=== PATIENT | male | born 1960 | race Caucasian/White ===

== ENCOUNTER 2024-10-02 13:47 | Emergency (ER) | payer OTHER, SELFPAY ==
[2024-10-02 13:48] VITALS: BP 143/97; PULSE 93; RESP 16; TEMP 36.7; O2SAT 92; BMI 26.3
--- NOTE | 2024-10-02 14:16 | EDS_ITS ---
HPI HPI - Fall History of Present Illness Chief Complaint: [facility] Medical History (Updated 10/02/24 @ 13:53 by Joan Vo) Kidney stones Allergy/AdvReac Type Severity Reaction Status Date / Time No Known Allergies Allergy Verified 10/02/24 13:52 Social History Smoking Status: Never smoker EXAM Physical Exam Const Vital Signs: 10/02/24 13:48 10/02/24 13:52 10/02/24 15:47 Temperature 98.1 F Temperature Source Oral Pulse Rate 93 72 Respiratory Rate 16 16 Respiratory Effort Normal Respiratory Depth Normal Respiratory Pattern Normal Blood Pressure 143/97 H 164/90 H Blood Pressure Mean 112 114 Pulse Ox 92 95 Oxygen Delivery Method Room Air Room Air Room Air Oxygen Flow Rate (L/min) 92 10/02/24 16:13 10/02/24 16:15 10/02/24 16:30 Temperature Temperature Source Pulse Rate 67 Respiratory Rate 12 Respiratory Effort Respiratory Depth Respiratory Pattern Blood Pressure 163/90 H Blood Pressure Mean 118 Pulse Ox 95 98 97 Oxygen Delivery Method Room Air Oxygen Flow Rate (L/min) 10/02/24 17:24 Temperature 98 F Temperature Source Pulse Rate 78 Respiratory Rate 14 Respiratory Effort Respiratory Depth Respiratory Pattern Blood Pressure 160/91 H Blood Pressure Mean 114 Pulse Ox 95 Oxygen Delivery Method Oxygen Flow Rate (L/min) MDM MDM MDM Narrative Medical decision making narrative: HISTORY OF PRESENT ILLNESS: Chief complaint: Fall 64-year-old male presents after fall. States he works at [employer] and fell down an elevator shaft. States this Is a 12 and 15 feet deep. Notes he landed on his feet. Denies hitting his head or losing consciousness. Complains of pain in bilateral heels/ankles. Notes is an old elevator. He is unaware there was not an elevator bucket in the shaft. Said he mainly open elevator and stepped in. This surprised there is no elevator there and he fell 12 to 15 feet. Did not hit his head. Did not lose consciousness. Complains of severe bilateral heel and ankle pain as well as left thumb pain. REVIEW OF SYSTEMS: Pertinent positives: Heel/ankle pain Pertinent negatives: Headache PHYSICAL EXAM: Nursing triage notes reviewed, Vital signs reviewed Primary Survey Airway: Intact Breathing: Bilateral breath sounds Circulation: Palpable bilateral femorals, Palpable bilateral radial, Palpable bilateral DP and Palpable bilateral PT Disability / Spine precautions GCS Score: Eye Openin Verbal Response: 5 Motor Response: 6 Secondary Survey Constitutional: Please see MDM Head: Atraumatic, Midface stable, NO jaw malocclusion, No Cephalohematoma, and No Lacerations noted Eye: Pupils equal round and reactive to light, Extraocular muscles intact and No periorbital ecchymosis or stepoff, no evidence of entrapment ENT: Oropharynx clear, no lacerations, no hemotympanum, no raccoon eyes or miller sign Cervical spine / Neck: No cervical spine bony tenderness, crepitance, or stepoff deformity Trachea midline Lungs: Clear to auscultation, No asymmetric rise and No crepitus, no flail chest Cardiac: Regular rate and rhythm and No murmurs Abdomen: Soft, Nontender and No rebound Pelvis: Pelvis stable to compression : No evidence of genital injury Back: No midline bony tenderness to thoracic/lumbar/sacral spines Neuro: At baseline, intact strength and sensation in bilateral upper and lower extremities. 2+ patellar reflexes bilaterally. Extremities: TTP over bilateral ankles, calcanei, no obvious deformities, warm well-perfused with intact range of motion although painful in bilateral ankles. Compartments are soft. Upper extremity joints including shoulder, elbow and wrist has full range of motion. Full hip and knee range of motion noted as well. Psych: Normal affect Skin: Abrasion noted over right knee, abrasion noted over right shoulder Nursing triage notes reviewed, Vital signs reviewed MEDICAL DECISION MAKING: Chief Complaint: please see HPI External records reviewed: No recent imaging noted Factors affecting care: none Social determinants of health: none History obtained from others: none Consults: [facility] ER MDM Narrative: The patient was initially hemodynamically stable afebrile nontoxic-appearing. Exam concerning for bilateral heel/ankle/left hand traumatic injury I considered intracranial and lumbar spine injury however the patient had n Head trauma, LOC and as such I did not obtain imaging with I considered the following differential diagnosis: Heel, ankle, left hand fracture I obtained a broad lab and imaging to further determine if the patient was suffe ring from a life-threatening etiology. Initially gave the patient IV morphine and Toradol for pain control ALL IMAGES (IF OBTAINED) HAVE BEEN PERSONALLY REVIEWED AND INTERPRETED BY MYSELF. X-rays of bilateral heels were read and reviewed personally by myself showed evidence of comminuted fractures. Radiologist agreed my interpretation X-rays of bilateral ankles with no evidence of obvious ankle mortise injury. Given bilateral calcaneal fractures I a added on labs secondary to patient's need for transfer to trauma center. Labs showed leukocytosis consistent with recent trauma but no anemia. CMP without evidence of acute kidney injury, significant electrolyte abnormality, anion gap to suggest end organ hypo-perfusion, no evidence of metabolic acidosis with a normal bicarbonate, no evidence of hepatobiliary obstructive pathology. Added a CT scan lumbar spine given high incidence of lumbar spine injury with concomitant calcaneal fractures. Currently awaiting CT scan lumbar spine results. CT lumbar spine was read as negative. Discussed with [facility] ER physician Dr. Olivares who agreed to accept the patient in transfer. Patient requires transfer for definitive orthopedic and trauma care. The patient and/or family, caregivers express understanding. The patient and/or family, caregivers agrees with the plan. Shared decision making: I will have a discussion with the patient and or visitors regarding risk/benefits of further testing or admission. They will be made aware of of the risk/benefits inherent in this decision they will be given the opportunity to voice understanding. Total critical care time today provided was at least 35 minutes. This excludes separately billable procedures. Critical care time (if documented) is secondary to the patient having high probability of clinically significant/life threatening deterioration in the patient's condition which required my urgent intervention. Impression: 1. Fall 2. Bilateral calcaneal fractures 3. Hand contusion Dispo: Transfer to [facility] for definitive trauma and orthopedic surgery care This note was generated with [employer] dictation software. It may contain incorrect words, spelling, and punctuation that were not noted in review of the chart prior to signing. Lab Data Labs: Laboratory Results - last 24 hr 10/02/24 15:40 WBC 11.5 H RBC 5.04 Hgb 14.4 Hct 42.5 MCV 84.3 MCH 28.6 MCHC 33.9 RDW Std Deviation 44.6 H RDW Coeff of Angy 14.7 H Plt Count 206 MPV 9.9 Immature Gran % (Auto) 0.400 Neut % (Auto) 84.7 H Lymph % (Auto) 6.0 L [place] % (Auto) 8.3 Eos % (Auto) 0.3 Baso % (Auto) 0.3 Absolute Neuts (auto) 9.7 H Absolute Lymphs (auto) 0.69 L Nucleated RBC % 0 Sodium 137 Potassium 4.7 Chloride 102 Carbon Dioxide 25.7 Anion Gap 9 BUN 23 H Creatinine 1.24 H Estim Creat Clear Calc 57.75 Est GFR (MDRD) Non-Af 66 BUN/Creatinine Ratio 18.5 Glucose 171 H Calcium 9.1 Total Bilirubin 0.24 Direct Bilirubin 0.11 AST 51 H ALT 35 Alkaline Phosphatase 109 Total Protein 7.0 Albumin 4.3 Globulin 2.7 Radiography Diagnostic Testing: Clinical Impression(s) from Imaging Studies Ankle X-Ray 10/02/24 15:05 IMPRESSION: Comminuted fracture of the calcaneus with loss of Boehler's angle. Reading Location: [id number] Ankle X-Ray 10/02/24 15:05 IMPRESSION: Comminuted fracture of the calcaneus with loss of Boehler's angle. Plantar spur. Soft tissue swelling. Reading Location: [id number] Hand X-Ray 10/02/24 15:05 IMPRESSION: No fracture is seen. Degenerative changes at the 1st metacarpal phalangeal joint. Reading Location: [id number] Os Calcis X-ray 10/02/24 15:05 IMPRESSION: Comminuted nondisplaced fracture of the calcaneus with loss of the Boehler's angle. Soft tissue swelling. Reading Location: [id number] Os Calcis X-ray 10/02/24 15:05 IMPRESSION: Nondisplaced comminuted fracture of the calcaneus. Bony spur. Reading Location: [id number] Lumbar Spine CT 10/02/24 16:08 IMPRESSION: No acute fracture or malalignment of the lumbosacral spine. Reading Location: [id number] Discharge Plan Triage Chief Complaint: Trauma ED Provider: Kulwinder Rodriguez Dx/Rx/DC Orders Primary Care Provider: Suleman Orellana Referrals: Suleman Orellana MD [Primary Care Provider] - Print Language: Croatian Disposition Disposition: Acute Care Hospital Discharge Location: [facility] Discharge Date/Time: 10/02/24 17:49
--- NOTE | 2024-10-02 15:05 | RAD_ITS ---
PROCEDURE: CALCANEUS MIN 2 VIEWS 10/02/2024 REASON FOR EXAM: PAIN AFTER FALL Left calcaneus. TECHNIQUE: CALCANEUS MIN 2 VIEWS FINDINGS: Comminuted nondisplaced fracture of the calcaneus with loss of Boehler's angle. Subtalar joint is unremarkable. Alignment is preserved. Soft tissue swelling. No radiopaque foreign body identified. RAD/Calcaneus min 2 Views IMPRESSION: Nondisplaced comminuted fracture of the calcaneus. Bony spur. Reading Location: [id number]
--- NOTE | 2024-10-02 15:05 | RAD_ITS ---
PROCEDURE: HAND MIN 3 VIEWS 10/02/2024 REASON FOR EXAM: LEFT HAND PAIN AFTER FALL TECHNIQUE: HAND MIN 3 VIEWS COMPARISON: None FINDINGS: Bones: No fracture seen. Joints: Degenerative changes with spur formation at the 1st metacarpal phalangeal joint. Soft tissues: Soft tissue swelling. Other: RAD/Hand Min 3 Views IMPRESSION: No fracture is seen. Degenerative changes at the 1st metacarpal phalangeal joint. Reading Location: [facility]
--- NOTE | 2024-10-02 15:05 | RAD_ITS ---
PROCEDURE: CALCANEUS MIN 2 VIEWS 10/02/2024 REASON FOR EXAM: PAIN AFTER FALL Left calcaneus. TECHNIQUE: CALCANEUS MIN 2 VIEWS COMPARISON: None FINDINGS: Comminuted nondisplaced fracture of the calcaneus with loss of Boehler's angle. Subtalar joint is unremarkable. Alignment is preserved. Soft tissue swelling. No radiopaque foreign body identified. RAD/Calcaneus min 2 Views IMPRESSION: Comminuted nondisplaced fracture of the calcaneus with loss of the Boehler's an gle. Soft tissue swelling. Reading Location: [facility]
--- NOTE | 2024-10-02 15:05 | RAD_ITS ---
PROCEDURE: ANKLE MIN 3 VIEWS 10/02/2024 REASON FOR EXAM: PAIN AFTER FALL Right ankle. TECHNIQUE: ANKLE MIN 3 VIEWS COMPARISON: None FINDINGS: Bones: Comminuted fracture of the calcaneus with loss of Boehler's angle. Joints: Normal alignment. Mortise appears intact. No effusion. Soft tissues: Soft tissue swelling. Other: RAD/Ankle min 3 Views IMPRESSION: Comminuted fracture of the calcaneus with loss of Boehler's angle. Reading Location: [id number]
--- NOTE | 2024-10-02 15:05 | RAD_ITS ---
PROCEDURE: ANKLE MIN 3 VIEWS 10/02/2024 REASON FOR EXAM: PAIN AFTER FALL TECHNIQUE: ANKLE MIN 3 VIEWS COMPARISON: 3 FINDINGS: Bones: Comminuted fracture of the calcaneus with loss of the Boehler's angle. Plantar spur. Joints: Normal alignment. Mortise appears intact. No effusion. Soft tissues: Soft tissue swelling. Other: RAD/Ankle min 3 Views IMPRESSION: Comminuted fracture of the calcaneus with loss of Boehler's angle. Plantar spur. Soft tissue swelling. Reading Location: [id number]
--- NOTE | 2024-10-02 15:06 | ED.RN ---
NURSE Prudence HUIZAR WAS CALLED BY [employer] WORKER, ISAURO ANGULO. THE NURSE WAS INFORMED TESTING WAS NOT REQUIRED D/T WITNESSED INCIDENT. SHABNAM GARCIA CALLED, AGAIN, TO CLARIFY DISCREPANCY. THIS NURSE WAS INFORMED THAT TESTING IS NOT NEEDED AT THIS TIME BY [facility].
[2024-10-02] MEDS: 0.9% Normal Saline (1000mL) 1,000 ML 999 ML IV (15:45)
[2024-10-02 15:47] VITALS: BP 164/90; PULSE 72; RESP 16; O2SAT 95
[2024-10-02 16:05] LABS: Hematocrit 42.5 % (40-54); Hemoglobin 14.4 g/dL (13.0-16.5); Immature Granulocytes Count 0.050 X10^3/uL (0.0-0.0); Mean Corp Hgb Conc 33.9 g/dL (32-36); Mean Corpuscular Volume 84.3 fL (80-94); Mean Platelet Vol. 9.9 fl (6.2-12.0); NRBC Flagged by Analyzer 0 % (0-5); Platelet Count 206 K/mm3 (150-450); RBC Distribution Width CV 14.7 % (11.6-14.6); RBC Distribution Width SD 44.6 fl (35.1-43.9); Red Blood Count 5.04 M/mm3 (4.6-6.2); White Blood Count 11.5 K/mm3 (4.4-11.0)
--- NOTE | 2024-10-02 16:08 | CT_ITS ---
PROCEDURE: CT SPINE LUMBAR WITHOUT CONTRAST 10/02/2024 REASON FOR EXAM: BILATERAL CALCANEUS FRACTURES TECHNIQUE: CT of the lumbosacral spine without contrast. Coronal and Sagittal reconstruction series were provided. One or more dose reduction techniques were used (e.g., Automated exposure control, adjustment of the mA and/or kV according to patient size, use of iterative reconstruction technique COMPARISON: None. RADIATION DOSE SUMMARY: CTDlvol: 13.82 mGy DLP: 511.99 mGycm FINDINGS: Lumbar vertebral segments are intact with anatomic alignment. Preserved vertebral body heights. Mild spondylotic changes without evidence for any significant high-grade spinal canal or neural foraminal stenosis. Normal bone mineralization. Unremarkable paravertebral soft tissues. Distal colonic diverticulosis. Mildly enlarged prostate. Atherosclerotic vascular calcifications. Small nonobstructive bilateral renal calculi, no hydronephrosis is seen on either side. CT/Spine Lumbar without Contrast IMPRESSION: No acute fracture or malalignment of the lumbosacral spine. Reading Location: [id number]
[2024-10-02 16:11] LABS: AST(SGOT) 51 U/L (<=37); Alanine Aminotransfer ALT/SGPT 35 U/L (<=46); Albumin, Serum 4.3 g/dL (3.4-4.8); Alkaline Phosphatase 109 U/L (40-129); Anion Gap 9 (5-15); BUN 23 mg/dL (4-19); BUN/Creat Ratio 18.5 RATIO (10-20); Bilirubin, Direct 0.11 mg/dL (0.00-0.30); Calcium,Total 9.1 mg/dL (7.6-11.0); Carbon Dioxide 25.7 mmol/L (21.0-32.0); Chloride 102 mmol/L (98-108); Estimated Creatinine Clearance 57.75 ml/min (50-250); Globulin 2.7 g/dL (2.2-4.2); Glucose 171 mg/dL (70-99); Potassium 4.7 mmol/L (3.3-5.1)
[2024-10-02 16:13] VITALS: O2SAT 95
[2024-10-02 16:15] VITALS: BP 163/90; PULSE 67; RESP 12; O2SAT 98
--- NOTE | 2024-10-02 16:29 | ED.RN ---
REPORT CALLED TO [facility] ED NURSE, BECK ROGER AT THIS TIME. NO FURTHER QUESTIONS BY THE RECEIVING NURSE. TRANSFER ETA APPROX [id number].
[2024-10-02 16:30] VITALS: O2SAT 97
[2024-10-02 17:24] VITALS: BP 160/91; PULSE 78; RESP 14; TEMP 36.6; O2SAT 95
[2024-10-02] MEDS: HYDROmorphone 0.5 MG/0.5 ML SYRINGE IV (17:24)
== END 2024-10-02 17:49 | disposition short-term general hospital (02) ==
LOC: ED 14:40
PROVIDERS: Emergency Provider Emergency Medicine; PCP Family Medicine; Visit Provider Emergency Medicine
DX: S92.001A Unspecified fracture of right calcaneus, initial encounter for closed fracture (principal); S92.002A Unspecified fracture of left calcaneus, initial encounter for closed fracture; Y99.0 Civilian activity done for income or pay; Y92.89 Other specified places as the place of occurrence of the external cause; W17.89XA Other fall from one level to another, initial encounter; S60.222A Contusion of left hand, initial encounter
CPT/HCPCS: 72131; 73130; 73610; 73650; 80048; 80076; 85025; 96361; 96374; 96375; 99285; A4216